=== PATIENT | male | born 1955 | race Caucasian/White ===

== ENCOUNTER → 2016-09-26 | Outpatient (CLI) | payer BC ==
[2016-09-26 10:33] LABS: Basophils % (A) 1 %; CH 31.1; CHCM 34.4; Eosinophils # (A) 0.1 k/uL (0-0.7); Eosinophils % (A) 2 %; HCT 50.7 % (39.0-53.0); HDW 2.62; HGB 16.6 gm/dL (13.0-17.5); Luc # (Auto) 0.14; Luc % (Auto) 3; Lymphocytes # (A) 1.1 k/uL (1.0-4.8); Lymphocytes % (A) 22 %; MCH 29.8 pg (25.0-35.0); MCHC 32.8 g/dL (31.0-37.0); Monocytes # (A) 0.3 k/uL (0-1.0); Monocytes % (A) 7 %; Neutrophils # (A) 3.5 k/uL (1.3-7.7); Neutrophils % (A) 67 %; RBC 5.58 m/uL (4.30-5.90); RDW 12.7 % (11.5-15.5); WBC 5.2 k/uL (3.8-10.6); WBC (Perox) 5.11
[2016-09-26 10:43] LABS: INR 1.1 (<1.1); Prothrombin Time 10.8 sec (9.0-12.0)
[2016-09-26 10:50] LABS: Bilirubin, Delta 0.3 mg/dL (0.0-0.2); Total Bilirubin 2.2 mg/dL (0.2-1.3); Total Protein 8.2 g/dL (6.3-8.2)
[2016-09-29 09:11] LABS: Hepatits C Virus RNA, Quant <12 IU/mL (<12); LOG HCV IU/mL <1.08 (<1.08)
== END | disposition home or self-care (01) ==
LOC: LABWHC1 09:35
PROVIDERS: ATTEND Physician Assistant
DX: B18.2 Chronic viral hepatitis C (principal)
CPT/HCPCS: 36415; 80076; 82105; 85025; 85610; 87522

== ENCOUNTER → 2016-10-22 | Outpatient (CLI) | payer BC ==
--- NOTE | 2016-10-22 07:26 | US ---
EXAMINATION TYPE: US liver DATE OF EXAM: 10/22/2016 7:13 AM COMPARISON: 11/04/2015 CLINICAL HISTORY: B18.2 Hepatitis C. EXAM MEASUREMENTS: Liver Length: 15.9 cm Gallbladder Wall: Surgically absent CBD: 0.1cm Right Kidney: 10.9 x 4.4 x 5.3 cm Pancreas: wnl Liver: wnl Gallbladder: Surgically absent Evidence for sonographic Mckeon's sign: Surgically absent CBD: wnl Right Kidney: wnl IMPRESSION: No distinct abnormality seen.
== END | disposition home or self-care (01) ==
LOC: RADUSWWP 06:57
DX: B18.2 Chronic viral hepatitis C (principal)
CPT/HCPCS: 76705

== ENCOUNTER → 2017-10-19 | Outpatient (CLI) | payer BC ==
[2017-10-19 10:48] LABS: Basophils % (A) 1 %; Eosinophils # (A) 0.2 k/uL (0-0.7); Eosinophils % (A) 3 %; HCT 48.3 % (39.0-53.0); HGB 16.6 gm/dL (13.0-17.5); Lymphocytes # (A) 1.5 k/uL (1.0-4.8); Lymphocytes % (A) 26 %; MCH 29.2 pg (25.0-35.0); MCHC 34.3 g/dL (31.0-37.0); MCV 85.1 fL (80.0-100.0); Mean Platelet Volume 6.3; Monocytes # (A) 0.4 k/uL (0-1.0); Monocytes % (A) 7 %; Neutrophils # (A) 3.5 k/uL (1.3-7.7); Neutrophils % (A) 62 %; Platelet Count 235 k/uL (150-450); RBC 5.68 m/uL (4.30-5.90); RDW 12.3 % (11.5-15.5); WBC 5.6 k/uL (3.8-10.6)
[2017-10-19 10:50] LABS: INR 1.1 (<1.2); Prothrombin Time 10.4 sec (9.0-12.0)
[2017-10-19 11:05] LABS: Albumin 4.7 g/dL (3.5-5.0); Bilirubin, Delta 0.3 mg/dL (0.0-0.2); Bilirubin,Unconjugated 2.5 mg/dL (0.0-1.1); Total Bilirubin 2.8 mg/dL (0.2-1.3); Total Protein 7.6 g/dL (6.3-8.2)
[2017-10-20 14:52] LABS: Hepatits C Virus RNA Not detected (Not detected); Hepatits C Virus RNA, Quant <12 IU/mL (<12); LOG HCV IU/mL <1.08 (<1.08)
== END | disposition home or self-care (01) ==
LOC: LABWHC1 10:04
PROVIDERS: ATTEND Physician Assistant
DX: B18.2 Chronic viral hepatitis C (principal)
CPT/HCPCS: 36415; 80076; 82105; 85025; 85610; 87522

== ENCOUNTER → 2017-11-05 | Outpatient (CLI) | payer BC ==
--- NOTE | 2017-11-05 08:23 | US ---
EXAMINATION TYPE: US liver DATE OF EXAM: 11/05/2017 COMPARISON: US 10/22/2016 and 11/04/2015 CLINICAL HISTORY: B18.2 Chronic Viral Hepatitis C. Chronic Hep C EXAM MEASUREMENTS: Liver Length: 16.4 cm CBD: 0.4 cm Right Kidney: 11.3 x 4.2 x 5.7 cm Pancreas: wnl, tail obscured by overlying bowel gas Liver: wnl Gallbladder: Surgically absent Evidence for sonographic Mckeon's sign: No CBD: wnl Right Kidney: wnl IMPRESSION: Hepatic echogenicity is homogeneous despite the patient's history of known underlying hep atocellular disease. No focal masses on today's examination.
== END | disposition home or self-care (01) ==
LOC: RADUSWWP 06:47
DX: B18.2 Chronic viral hepatitis C (principal)
CPT/HCPCS: 76705

== ENCOUNTER → 2018-11-26 | Outpatient (CLI) | payer BC ==
[2018-11-26 09:54] LABS: Basophils % (A) 1 %; Eosinophils # (A) 0.2 k/uL (0-0.7); Eosinophils % (A) 3 %; HCT 46.8 % (39.0-53.0); HGB 15.6 gm/dL (13.0-17.5); Lymphocytes # (A) 1.2 k/uL (1.0-4.8); Lymphocytes % (A) 22 %; MCH 29.4 pg (25.0-35.0); MCHC 33.4 g/dL (31.0-37.0); MCV 87.9 fL (80.0-100.0); Mean Platelet Volume 6.1; Monocytes # (A) 0.3 k/uL (0-1.0); Monocytes % (A) 6 %; Neutrophils # (A) 3.8 k/uL (1.3-7.7); Neutrophils % (A) 67 %; Platelet Count 230 k/uL (150-450); RBC 5.32 m/uL (4.30-5.90); RDW 12.4 % (11.5-15.5); WBC 5.6 k/uL (3.8-10.6)
[2018-11-26 10:19] LABS: INR 0.9 (<1.2); Prothrombin Time 10.1 sec (9.0-12.0)
[2018-11-26 16:55] LABS: Albumin 4.7 g/dL (3.80-4.90); Albumin/Globulin Ratio 2.14 (1.60-3.17); Bilirubin, Conjugated 0.6 mg/dL (0.20-0.40); Bilirubin,Unconjugated 1.8 mg/dL; Globulin 2.2 g/dL (1.6-3.3); Total Bilirubin 2.4 mg/dL (0.3-1.2); Total Protein 6.9 g/dL (6.2-8.2)
== END | disposition home or self-care (01) ==
LOC: LABWHC1 09:24
PROVIDERS: ATTEND Physician Assistant
DX: B18.2 Chronic viral hepatitis C (principal)
CPT/HCPCS: 36415; 80076; 82105; 85025; 85610; 87522

== ENCOUNTER → 2018-12-30 | Outpatient (CLI) | payer BC ==
--- NOTE | 2018-12-30 08:28 | US ---
EXAMINATION TYPE: US liver DATE OF EXAM: 12/30/2018 COMPARISON: US's CLINICAL HISTORY: B18.2 Chronic Viral Hep C. EXAM MEASUREMENTS: Liver Length: 11.7 cm Gallbladder Wall: Surgically absent cm CBD: 0.5 cm Right Kidney: 11.1 x 4.3 x 5.9 cm Pancreas: visualized portions wnl distal body and tail of pancreas obscured by bowel gas. Liver: wnl . No discrete masses are evident. Gallbladder: Surgically absent CBD: wnl Right Kidney: No hydronephrosis or masses seen IMPRESSION: 1. Normal right upper quadrant ultrasound
== END | disposition home or self-care (01) ==
LOC: RADUSWWP 07:28
PROVIDERS: ATTEND Internal Medicine Gastroenterology
DX: B18.2 Chronic viral hepatitis C (principal)
CPT/HCPCS: 76705

== ENCOUNTER → 2020-10-28 | Outpatient (CLI) | payer BC ==
--- NOTE | 2020-10-28 08:50 | US ---
EXAMINATION TYPE: US liver DATE OF EXAM: 10/28/2020 COMPARISON: US 2019 CLINICAL HISTORY: B18.2 Chronic viral hepatitis C. EXAM MEASUREMENTS: Liver Length: 15.2 cm CBD: 0.6 cm Right Kidney: 10.0 x 5.3 x 5.3 cm Pancreas: visualized portions wnl, limited by overlying midline bowel gas Liver: wnl Gallbladder: surgically absent Evidence for sonographic Mckeon's sign: no CBD: wnl Right Kidney: wnl IMPRESSION: 1. Postcholecystectomy. 2. Liver is homogeneous with no evidence of focal mass.
== END | disposition home or self-care (01) ==
LOC: RADUSWWP 08:18
PROVIDERS: ATTEND Internal Medicine Gastroenterology
DX: Z90.49 Acquired absence of other specified parts of digestive tract (principal)
CPT/HCPCS: 76705